=== PATIENT | male | born 1940 | race Caucasian/White ===

== ENCOUNTER 2017-09-13 04:44 | Emergency (ER) | payer MEDICARE, OTHER, SELFPAY ==
[2017-09-13 05:01] VITALS: BP 171/94; PULSE 80; RESP 18; TEMP 37.1; O2SAT 97; BMI 28.5
--- NOTE | 2017-09-13 05:24 | ED.BACK ---
HPI - Back Pain/Injury General Chief Complaint: Back Pain/Injury Stated Complaint: BACK PAIN WOKE HIM UP Time Seen by Provider: 09/13/17 05:22 Source: patient and family Mode of arrival: ambulatory Limitations: no limitations History of Present Illness HPI Narrative: 77-year-old male with history of hyperlipidemia and kidney stones presents to the emergency department with sudden onset deep right lower back pain with radiation to his front. He states on some levels that reminds him of a kidney stone in the past. He denies any provocation or palliation of this pain. He denies any dysuria, frequency, urgency or hematuria. He does have a history of musculoskeletal back pain and states this feels different. He denies any chest pain or shortness of breath. He denies any dizziness, weakness or lightheadedness. Does have a bit of nausea associated. He denies any history of hypertension or known aneurysm Related Data Home Medications Medication Instructions Recorded Confirmed ASPIRIN (#ASPIRIN) 81 mg PO Q DAY #0 09/18/10 niacin 500 mg PO 4 DAILY OTC #0 09/18/10 simvastatin 20 mg PO Q DAY #0 09/18/10 Previous Rx's Medication Instructions Recorded hydrocodone-acetaminophen 1 tab PO Q4-6H PRN #14 tab 09/13/17 ketorolac 10 mg PO Q6H PRN #14 tab 09/13/17 ondansetron [Zofran ODT] 4 mg PO Q6H PRN #14 tab 09/13/17 tamsulosin [Flomax] 0.4 mg PO DAILY #10 cap 09/13/17 Allergies Allergy/AdvReac Type Severity Reaction Status Date / Time INGREDIENT: NKA - NO KNOWN Allergy Unknown Uncoded 06/03/17 11:50 ALLERGIES Review of Systems Review of Systems All systems reviewed & are unremarkable except as noted in HPI and below Constitutional Denies chills, Denies fever(s), Denies lethargy and Denies weakness Eyes Denies change in vision, Denies eye discharge, Denies irritation and Denies loss of vision ENT Ears, Nose, Mouth, and Throat: Denies change in voice, Denies neck pain and Denies sore throat Cardiovascular Denies chest pain, Denies irregular heart rhythm, Denies lightheadedness, Denies palpitations, Denies dyspnea, Denies dyspnea on exertion and Denies orthopnea Respiratory Denies cough, Denies dyspnea, Denies dyspnea on exertion and Denies wheezing Gastrointestinal Gastrointestinal: Denies abdominal pain, Denies change in bowel habits, Denies diarrhea, Reports nausea and Denies vomiting Genitourinary Denies hematuria, Denies flank pain, Denies urinary incontinence and Denies urinary urgency Musculoskeletal Reports back pain and Denies neck pain Integumentary/Breasts Denies pruritus, Denies erythema, Denies rash and Denies wounds Neurologic Denies confusion, Denies loss of vision and Denies weakness Psychiatric Denies anxiety, Denies confusion, Denies depression, Denies homicidal ideation and Denies suicidal ideation Endocrine Denies palpitations Hematologic/Lymphatic Denies easy bruising Allergic/Immunologic Denies wheezing Exam Narrative Exam Narrative: 77-year-old mildly uncomfortable patient resting on cot Initial Vital Signs Initial Vital Signs: Vital Signs Temperature 98.7 F 09/13/17 05:01 Pulse Rate 80 09/13/17 05:01 Respiratory Rate 18 09/13/17 05:01 Blood Pressure 171/94 H 09/13/17 05:01 Pulse Oximetry 97 09/13/17 05:01 Const General: cooperative, well developed and in distress Nutritional Appearance: well nourished Orientation: alert, awake, oriented x3 and not confused HENAK Head: normocephalic and atraumatic Ears: external ears normal and TM's normal bilaterally Nose: external nose normal and No nasal discharge Face and sinus: sinuses nontender, face symmetric, no sinus tenderness and No dry mucous membranes Mouth: oral mucosae normal and moist mucous membranes Teeth and gingiva: dentition normal Throat: tonsils normal and uvula midline Resp Effort & Inspection: normal respiratory effort, able to speak in complete sentences, no respiratory distress and no use of accessory muscles Auscultation: clear to auscultation bilaterally, no rales, no rhonchi and no wheezes GI Inspection: non-distended Palpation: soft, no hepatosplenomegaly, No guarding, No pulsatile mass and tender (Mild right-sided abdominal pain) Auscultation: normal bowel sounds Back/Spine/Pelvis Back: No back tenderness Other: BACK: cut off saw tender metal but free of any obvious external abnormalities. no CVA tenderness, or vertebral point tenderness. There are no symptoms of cauda equina such as saddle anesthesia, and decreased reflexes, decreased sensation or strength. Skin General: no rashes or lesions noted, No jaundice and No petechiae Neuro General: alert, oriented x3, gait normal and no focal motor deficits Speech: speech normal Extrem General: full ROM, no clubbing, cyanosis or edema, no pedal edema and no calf tenderness Course Orders Ordered: ED Orders 09/13/17 05:34 Basic Metabolic Panel Stat Complete Blood Count AUTO DIFF Stat Type and Screen Stat 09/13/17 06:16 Urinalysis and Microscopic Stat 09/13/17 06:35 CT kidney ureter bladder (KUB) Stat Sodium Chloride (Normal Saline 0.9%) 1,000 mls @ 150 mls/hr IV CONT ANU Last Infusion: 09/13/17 06:41 Dose: 0 mls/hr Admin: 09/13/17 05:48 Dose: 150 mls/hr Discontinued Medications Hydrocodone Bitart/Acetaminophen (Vicodin Prepack) 1 bottle MISC SEEINSTR ONE Stop: 09/13/17 07:35 Ketorolac Tromethamine (Toradol) 30 mg IV NOW ONE Stop: 09/13/17 05:23 Last Admin: 09/13/17 05:48 Dose: 30 mg Ondansetron HCl (Zofran) 4 mg IV NOW ONE Stop: 09/13/17 05:26 Last Admin: 09/13/17 05:49 Dose: 4 mg Reevaluation(s) Reevaluation #1: near complete resolution of symptoms after toradol Vital Signs - 8 hr 09/13/17 05:01 Temperature 98.7 F Pulse Rate 80 Respiratory Rate 18 Blood Pressure 171/94 H Pulse Oximetry 97 MDM - Back Pain/Injury Lab Data Attestation: I reviewed the patient's lab results. Result diagrams: 09/13/17 05:34 09/13/17 05:34 Lab Results 09/13/17 09/13/17 09/13/17 Range/Units 05:34 05:34 05:34 WBC 6.5 (4.5-11.0) X10^3/uL RBC 4.73 (4.5-5.9) X10^6/uL Hgb 14.9 (13.5-17.5) g/dL Hct 44.0 (41-53) % MCV 93.1 (80-100) fL MCH 31.4 (26-34) PG MCHC 33.8 (30-36) % RDW 14.9 H (11.6-14.8) % Plt Count 232 (150-400) X10^3/uL Neut % (Auto) 66.6 (50-75) % Lymph % (Auto) 26.2 (25-40) % [place] % (Auto) 5.4 (3-14) % Eos % (Auto) 1.3 L (2-4) % Baso % (Auto) 0.5 (0-2) % Neut # (Auto) 4300 (9028-7395) /uL Sodium 142 (137-145) mmol/L Potassium 4.4 (3.4-5.1) mmol/L Chloride 105 (98-107) mmol/L Carbon Dioxide 25 (22-32) mmol/L BUN 33 H (9-20) mg/dL Creatinine 0.90 (0.66-1.25) mg/dL Estimated GFR > 60.0 (>60) mL/min BUN/Creatinine Ratio 36.7 H (6-22) Glucose 128 H (80-110) mg/dL Calcium 9.1 (8.4-10.2) mg/dL Urine Color Urine Appearance Urine pH (4.5-8.0) Ur Specific [place] (1.000-1.035) Urine Protein (Negative) Urine Glucose (UA) (Normal) g/dL Urine Ketones (NEGATIVE) Urine Occult Blood (Negative) Urine Nitrate (Negative) Urine Bilirubin (NEGATIVE) Urine Urobilinogen (0.2) E.U./dL Ur Leukocyte Esterase (NEGATIVE) Urine RBC (0-5/HPF) Urine WBC (0-5/HPF) Ur Squamous Epith Cells Ur Renal Epithelial Cell Urine Bacteria (None) Ur Culture Indicated? Blood Type A Positive Antibody Screen Negative 09/13/17 Range/Units 06:16 WBC (4.5-11.0) X10^3/uL RBC (4.5-5.9) X10^6/uL Hgb (13.5-17.5) g/dL Hct (41-53) % MCV (80-100) fL MCH (26-34) PG MCHC (30-36) % RDW (11.6-14.8) % Plt Count (150-400) X10^3/uL Neut % (Auto) (50-75) % Lymph % (Auto) (25-40) % [place] % (Auto) (3-14) % Eos % (Auto) (2-4) % Baso % (Auto) (0-2) % Neut # (Auto) (9407-5085) /uL Sodium (137-145) mmol/L Potassium (3.4-5.1) mmol/L Chloride (98-107) mmol/L Carbon Dioxide (22-32) mmol/L BUN (9-20) mg/dL Creatinine (0.66-1.25) mg/dL Estimated GFR (>60) mL/min BUN/Creatinine Ratio (6-22) Glucose (80-110) mg/dL Calcium (8.4-10.2) mg/dL Urine Color Yellow Urine Appearance Slightly cloudy Urine pH 5.0 (4.5-8.0) Ur Specific [place] 1.025 (1.000-1.035) Urine Protein Negative (Negative) Urine Glucose (UA) Negative (Normal) g/dL Urine Ketones Trace H (NEGATIVE) Urine Occult Blood 3+ H (Negative) Urine Nitrate Negative (Negative) Urine Bilirubin Negative (NEGATIVE) Urine Urobilinogen 0.2 (0.2) E.U./dL Ur Leukocyte Esterase Negative (NEGATIVE) Urine RBC 30-100/hpf H (0-5/HPF) Urine WBC 0-1/hpf (0-5/HPF) Ur Squamous Epith Cells 1-5 /hpf Ur Renal Epithelial Cell 0-1/hpf Urine Bacteria None seen (None) Ur Culture Indicated? Cult not indicated Blood Type Antibody Screen Imaging Data CT KUB: Attestation: I personally reviewed and interpreted this imaging study as follows: Radiologist's impression: 3mm stone R prox ureter with mild hydro Discharge Plan Departure Patient Disposition: Home, Self-Care Clinical Impression: Kidney calculi Instructions: DI for Kidney Stones Activity Restrictions/Additional Instructions: *You have been diagnosed with [ kidney stone] *What to do: *Take medications as directed *Follow up with your primary care provider in 2-3 days, call for an appointment. Let them know you were seen in the Emergency Department and that we ask that you be seen in follow up *Return to ER if you should have any new, worsening or concerning symptoms, such as [ fever over 101 F, shaking chills, persistent nausea and vomiting, worsening pain, or other bothersome symptoms] Prescriptions: New hydrocodone-acetaminophen 5-325 mg tablet 1 tab PO Q4-6H PRN (Reason: pain) Qty: 14 RF: 0 ketorolac 10 mg tablet 10 mg PO Q6H PRN (Reason: pain) Qty: 14 RF: 0 ondansetron [Zofran ODT] 4 mg tablet,disintegrating 4 mg PO Q6H PRN (Reason: nausea and vomiting) Qty: 14 RF: 0 tamsulosin [Flomax] 0.4 mg capsule,extended release 24hr 0.4 mg PO DAILY Qty: 10 RF: 0 No Action ASPIRIN (#ASPIRIN) 81 mg PO Q DAY Qty: 0 RF: 0 simvastatin 20 MG tablet 20 mg PO Q DAY Qty: 0 RF: 0 niacin 500 MG capsule, extended release 500 mg PO 4 DAILY OTC Qty: 0 RF: 0 Referrals: Tanesha Smith MD [Physician] - Byron Pedro MD [Primary Care Provider] -
[2017-09-13] MEDS: KETOROLAC 30 MG/ML VIAL IV (05:48)
[2017-09-13] MEDS: SODIUM CHLORIDE 0.9% 1,000 ML 150 ML IV (05:48)
[2017-09-13 05:49] LABS: Add Manual Diff / Slide Review NO; Basophils Percent Auto 0.5 % (0-2); Eosinophils Percent Auto 1.3 % (2-4); Hemoglobin 14.9 g/dL (13.5-17.5); Lymphocytes Percent Auto 26.2 % (25-40); Mean Corpuscular HGB Conc 33.8 % (30-36); Mean Corpuscular Hemoglobin 31.4 PG (26-34); Mean Corpuscular Volume 93.1 fL (80-100); Monocytes Percent Auto 5.4 % (3-14); Neutrophils Absolute Auto 4300 /uL (3000-5900); Neutrophils Percent Auto 66.6 % (50-75); Platelet Count 232 X10^3/uL (150-400); Red Blood Cell Count 4.73 X10^6/uL (4.5-5.9); Red Cell Distribution Width 14.9 % (11.6-14.8); White Blood Cell Count 6.5 X10^3/uL (4.5-11.0)
[2017-09-13] MEDS: ONDANSETRON 4 MG/2 ML INJ IV (05:49)
[2017-09-13 05:54] LABS: BUN Creatinine Ratio 36.7 (6-22); Blood Urea Nitrogen 33 mg/dL (9-20); Calcium 9.1 mg/dL (8.4-10.2); Carbon Dioxide 25 mmol/L (22-32); Chloride 105 mmol/L (98-107); Estimated Glomerular Filt Rate > 60.0 mL/min (>60); Glucose 128 mg/dL (80-110); HEMOLYSIS 36 (0-50); Potassium 4.4 mmol/L (3.4-5.1); Sodium 142 mmol/L (137-145)
[2017-09-13 06:02] LABS: Bacteria Urine None Seen
[2017-09-13 06:17] LABS: Appearance Urine UA Slightly Cloudy; Bilirubin Urine UA NEGATIVE (NEGATIVE); Color Urine UA YELLOW; Glucose Urine UA NEGATIVE (Normal); Ketones Urine UA TRACE (NEGATIVE); Leukocyte Esterase Urine UA NEGATIVE (NEGATIVE); Nitrite Urine UA Negative (Negative); Occult Blood Urine UA 3+ (Negative); Protein Urine UA NEGATIVE (Negative); Specific Gravity Urine UA 1.025 (1.000-1.035); Urobilinogen Urine UA 0.2 E.U./dL (0.2)
[2017-09-13 06:19] LABS: RBC Urine 30-100/HPF (0-5/HPF); Squamous Epithelial Cell Urine 1-5 /HPF; WBC Urine 0-1/HPF (0-5/HPF)
[2017-09-13 06:20] LABS: Culture Indicated Urine Cult Not Indicated; Renal Epithelial Cells Urine 0-1/HPF
--- NOTE | 2017-09-13 06:35 | DI.CT.S_ITS ---
PROCEDURE: CT KIDNEY URETER BLADDER (KUB) INDICATIONS: flank pain hematuria TECHNIQUE: Noncontrast 5 mm thick sections acquired from the diaphragms to the symphysis. 5 mm thick coronal and sagittal reformats were then performed. For radiation dose reduction, the following was used: automated exposure control, adjustment of mA and/or kV according to patient size. COMPARISON: None. FINDINGS: Image quality: Excellent. Lung bases: Lung bases are clear. Heart size is normal. Urinary system: There is a 3 mm calcification in the proximal right ureter with mild to moderate proximal hydroureter and hydronephrosis. There is right perinephric stranding. Punctate calcification is noted within the inferior right renal pole. The left kidney is unremarkable. Bladder wall thickness is normal; no calcified bladder stones. Other solid organs: Liver is mildly prominent. Gallbladder is unremarkable. Pancreas is normal in contours. Spleen is normal in size. No adrenal nodules. Peritoneum and bowel: Unenhanced bowel loops demonstrate normal wall thickness and caliber. No free fluid or air. Scattered diverticula are present. Nodes and vessels: No retroperitoneal or mesenteric adenopathy by size criteria. Aorta and inferior vena cava are normal in caliber. Atherosclerotic changes are noted throughout the aorta. Abdominal wall: No ventral hernias. Pelvis: No free pelvic fluid. No inguinal hernias or adenopathy. Bones: No suspicious bony lesions. No vertebral body compression fractures. IMPRESSION: 1. Mild to moderate right hydronephrosis and proximal hydroureter secondary to proximal right obstructing ureteral calculus. Dictated by: Lo Miller M.D. on 09/13/2017 at 9:32 Approved by: Lo Miller M.D. on 09/13/2017 at 9:37
[2017-09-13 07:49] VITALS: BP 139/80; PULSE 78; RESP 20; O2SAT 96
== END 2017-09-13 07:49 | disposition home or self-care (01) ==
PROVIDERS: Emergency Provider Emergency Medicine; Family Provider Internal Medicine Cardiovascular Disease; PCP Family Medicine
DX: N20.0 Calculus of kidney (principal)
CPT/HCPCS: 36591; 74176; 80048; 81001; 85025; 86850; 86900; 86901; 96361; 96374; 96375; 99283; 99284; J1885; J2405

== ENCOUNTER 2017-11-04 10:22 | Day surgery (SDC) | payer MEDICARE, OTHER, SELFPAY ==
--- NOTE | 2017-11-04 07:44 | PM.PREOP ---
Pre-operative Note Interval Note Pre-op Check: Yes History & Physical Reviewed by Physician Changes: No
[2017-11-04] MEDS: PROPARACAINE 0.5% OPHTH SOL 2 DROPS EYE-OP (11:40)
[2017-11-04] MEDS: CATARACT EYE COMPOUND (10 DROPS/SYRINGE) 3 DROPS EYE-OP (11:40)
[2017-11-04 11:54] VITALS: BP 124/78; PULSE 74; RESP 15; TEMP 36.4; O2SAT 97; BMI 28.8
[2017-11-04] MEDS: LIDOCAINE 1% W/EPI INJ 20 ML INJ (13:19)
[2017-11-04] MEDS: BALANCED SALT IRRIG SOLN NO.2 15 ML IRRIG.SOLN IRR (13:19)
[2017-11-04] MEDS: CHONDROIDTIN/SOD HYALURONATE 1.05 ML SYRINGE INTRAOCULA (13:19)
[2017-11-04] MEDS: MOXIFLOXACIN OPHTH DROPS 3 ML BOTTLE 2 DROPS INJ (13:19)
[2017-11-04] MEDS: PHENYLEPHRINE/LIDOCAINE VIAL (OR) 0.2 ML EYE-OP (13:20)
[2017-11-04] MEDS: OFLOXACIN 0.3% OPHTH 5 ML 2 DROPS EYE-RIGHT (13:20)
[2017-11-04] MEDS: TRIAMCINOLONE 50 MG/5 ML VIAL INJ (13:20)
[2017-11-04] MEDS: NEOMYCIN/POLY/DEX OPHTH OINT 1 APPLIC EYE-RIGHT (13:20)
[2017-11-04] MEDS: TRYPAN BLUE 0.5 ML SYRINGE INJ (13:21)
[2017-11-04] MEDS: LIDOCAINE 2% 4 ML, BUPIVACAINE 0.5% (PF) 4 ML, HYALURONIDASE 150 UNIT INJ (13:21)
[2017-11-04] MEDS: BALANCED SALT IRRIG SOLN NO.2 500 ML, EPINEPHrine 1 MG IRR (13:21)
[2017-11-04 13:55] VITALS: BP 126/74; PULSE 70; RESP 12; TEMP 36.4; O2SAT 96
--- NOTE | 2017-11-04 16:22 | PM.OP.1 ---
Operative Date/Time/Diagnoses Date of procedure: 11/04/17 Time of procedure: 13:30 Procedure & Clinicians Procedure: Date of service:11/04/2017 Preoperative diagnoses: 1. Right complex Cataract with toric IOL. 2. Enlarged prostate. 3. Astigmatism which he elects to treat with a toric IOL. Postoperative diagnoses: 1. Cataract removed with phacoemulsification with use of capsular dye. Toric IOL. Complex. Procedure: Phacoemulsification with toric posterior chamber intraocular lens implant Surgeon: Vivian Thomas MD Complications:None Specimen: None Implant:[id number] . [place]rie 011 degrees. Blood loss: None Anesthesia: Retrobulbar with monitored standby Anesthesiologist: Cisco Mendez M.D. Description of procedure: Patient is a male year old with decreased vision due to cataract which is affecting activities of daily living. He wants surgery to improve vision. There is a very poor red reflex due to diffuse cortical cataract and bordreline pupil with protate disease and previous short term tamsulosin use. He has taken to the operating room and topical proparacaine drops were placed. Indelible ink markings were made at the 90 and 180 degree position.He was then given IV sedation. A retrobulbar block insert consisting of 6 cc of 2% xylocaine without epinephrine mixed half and half with 0.5% Marcaine with 1 cc of hyaluronidase added is placed between the medial and lateral 1/3 of the inferior orbital rim. Lid akinesia is obtain with 1% xylocaine with epinephrine infiltrated along the lid margin. The eye is manually massaged for 30 sec, prepped using Betadine solution, and draped in the usual sterile fashion. Temporal approach was made, a 1 mm side-port incision was made at the 7:30 position. Phenylephrine 1.5% mixed with 1% xylocaine 0.2 cc was placed into the anterior chamber. An air bubble placed and then followed by Visudyne dye.Viscoat followed by Healon was then placed. A 2.6 mm clear incision with a 2.6 mm blade was placed at the 170 degree meridian. A 360 degree capsulorrhexis style capsulotomy was then performed with a cystitome needle on a Healon. Hydrodelineation and hydrodissection were performed. The phacoemulsification unit is introduced, and sculpting notice used to groove the central lens. It is then removed in chopping mode. Epi nucleus is removed with epinuclear mode and irrigation aspiration was used to remove the peripheral cortex. The posterior capsule is polished. The intraocular lens is selected, inspected, power confirmed, and placed in the posterior chamber at the 11 degree position. The pupil was not constricted. The wound was stromally hydrated and tested for leaks, there was none and was left sutureless. Vigamox 0.1 cc was placed into the anterior chamber. Kenalog 0.2 cc was placed in the superior subconjunctival space. A drop of antibiotic and was placed and the eye was patched and shielded. The patient was stable and returned to the recovery room in excellent condition. Dictated by: Vivian Thomas MD Copy to: [facility] Same procedure as scheduled: Yes
== END 2017-11-04 14:05 | disposition home or self-care (01) ==
PROVIDERS: PCP Family Medicine; Visit Provider Ophthalmology
DX: H25.11 Age-related nuclear cataract, right eye (principal); H52.201 Unspecified astigmatism, right eye
CPT/HCPCS: J0171; J2704; J3301; J3470; V2787

== ENCOUNTER 2017-11-11 08:22 | Day surgery (SDC) | payer MEDICARE, OTHER, SELFPAY ==
--- NOTE | 2017-11-11 08:05 | PM.PREOP ---
Pre-operative Note Interval Note Pre-op Check: Yes History & Physical Reviewed by Physician Changes: No
--- NOTE | 2017-11-11 08:07 | PM.OP.1 ---
Operative Date/Time/Diagnoses Date of procedure: 11/11/17 Time of procedure: 10:00 Procedure & Clinicians Procedure: Date of service: November 12, 2007 Preoperative diagnoses:1. Nuclear sclerotic and cortical cataract. 2. Previous pterygium removal with temporal scar.3. Previous prostate medication use use. 4. Astigmatism which he lelects to correct with a toric intraocular lens. Cataract Postoperative diagnoses:1. Cataract [removed with toric intra-ocular lens implant posterior chamber.Procedure: Phacoemulsification with posterior chamber toric intraocular lens implantSurgeon: Vivian Thomas MD. Complications: None Specimen: None Implant: NoneBlood loss: NoneAnesthesia: Retrobulbar with monitored standby. Anesthesiologist: Cisco Franks M.D.Description of procedure: Patient is a 77 year old male with decreased vision due to cataract which is affecting activities of daily living. He wants surgery to improve vision.He has taken to the operating room and given topical proparacaine drops and indelible ink diaz were made at the 90 and 180 degree meridian. He was placed on the operating room table and given IV sedation. A retrobulbar block insert consisting of 6 cc of 2% xylocaine without epinephrine mixed half and half with 0.5% Marcaine with 1 cc of hyaluronidase added is placed between the medial and lateral 1/3 of the inferior orbital rim. Lid akinesia is obtain with 1% xylocaine with epinephrine infiltrated along the lid margin. The eye is manually massaged for 30 sec, prepped using Betadine solution, and draped in the usual sterile fashion.Temporal approach was made, a 1 mm side-port incision was made at the 12 oclock meridian. Phenylephrine 1.5% mixed with 1% xylocaine 0.2 cc was placed into the anterior chamber. Viscoat followed by Kiet was then placed. A 2.6 mm clear incision with a 2.6 mm blade was placed at the 3 oclock meridian. A 360 degree capsulorrhexis style capsulotomy was then performed with a cystitome needle on a Healon. Hydrodelineation and hydrodissection were performed. The phacoemulsification unit is introduced, and sculpting notice used to groove the central lens. It is then removed in chopping mode. Epi nucleus is removed with epinuclear mode and irrigation aspiration was used to remove the peripheral cortex. The posterior capsule is polished. The intraocular lens is selected, inspected, power confirmed, and placed in the posterior chamber at the 175 degree meridian. The pupil was not constricted. The wound was stromally hydrated and tested for leaks, there was none and was left sutureless. Vigamox 0.1 cc was placed into the anterior chamber. Kenalog 0.2 cc was placed in the superior subconjunctival space. A drop of antibiotic and was placed and the eye was patched and shielded. The patient was stable and returned to the recovery room in excellent condition.Dictated by: AMBROSE Amayaopy to: [facility]
[2017-11-11 08:57] VITALS: BMI 28.6
[2017-11-11] MEDS: PROPARACAINE 0.5% OPHTH SOL 2 DROPS EYE-OP (09:04)
[2017-11-11 09:06] VITALS: BP 130/69; PULSE 78; RESP 16; TEMP 36.1; O2SAT 98
[2017-11-11] MEDS: CATARACT EYE COMPOUND (10 DROPS/SYRINGE) 3 DROPS EYE-OP (09:08)
[2017-11-11] MEDS: CHONDROIDTIN/SOD HYALURONATE 1.05 ML SYRINGE INTRAOCULA (10:24)
[2017-11-11] MEDS: HYALURONATE SODIUM 10 MG/ML SYRINGE INJ (10:24)
[2017-11-11] MEDS: MOXIFLOXACIN OPHTH DROPS 3 ML BOTTLE 2 DROPS INJ (10:24)
[2017-11-11] MEDS: NEOMYCIN/POLY/DEX OPHTH OINT 1 APPLIC EYE-LEFT (10:24)
[2017-11-11] MEDS: BALANCED SALT IRRIG SOLN NO.2 15 ML IRRIG.SOLN IRR (10:24)
[2017-11-11] MEDS: OFLOXACIN 0.3% OPHTH 5 ML 2 DROPS EYE-LEFT (10:25)
[2017-11-11] MEDS: TRIAMCINOLONE 50 MG/5 ML VIAL INJ (10:25)
[2017-11-11] MEDS: PHENYLEPHRINE/LIDOCAINE VIAL (OR) 0.2 ML EYE-OP (10:25)
[2017-11-11] MEDS: LIDOCAINE 2% 4 ML, BUPIVACAINE 0.5% (PF) 4 ML, HYALURONIDASE 150 UNIT INJ (10:26)
[2017-11-11] MEDS: BALANCED SALT IRRIG SOLN NO.2 500 ML, EPINEPHrine 1 MG IRR (10:26)
[2017-11-11 14:06] VITALS: BP 135/85; PULSE 77; RESP 12; TEMP 35.9; O2SAT 100
--- NOTE | 2017-11-11 14:09 | SUR.PHASEII ---
pt is ready to go, but his is having her cataract done, pt stayed in phase 2 to wait for her. pt ready to leave at 1100. when was completed, pt left in stable condition.
== END 2017-11-11 11:00 | disposition home or self-care (01) ==
LOC: OR 08:23
PROVIDERS: PCP Family Medicine; Visit Provider Ophthalmology
DX: H25.12 Age-related nuclear cataract, left eye (principal); H25.012 Cortical age-related cataract, left eye; H52.202 Unspecified astigmatism, left eye; N40.0 Benign prostatic hyperplasia without lower urinary tract symptoms; H91.90 Unspecified hearing loss, unspecified ear
CPT/HCPCS: J0171; J2704; J3301; J3470; V2787

== ENCOUNTER → 2019-01-18 10:13 | Outpatient (CLI) | payer MEDICARE, OTHER, SELFPAY ==
[2019-01-18 11:02] LABS: Add Manual Diff / Slide Review NO; Basophils Absolute Auto 0 /uL (0-100); Basophils Percent Auto 0.8 % (0-2); Eosinophils Absolute Auto 100 /uL (0-450); Eosinophils Percent Auto 1.4 % (2-4); Hematocrit 41.6 % (41-53); Hemoglobin 14.2 g/dL (13.5-17.5); Lymphocytes Absolute Auto 1700 /uL (1100-4500); Lymphocytes Percent Auto 33.5 % (25-40); Mean Corpuscular HGB Conc 34.3 % (30-36); Mean Corpuscular Hemoglobin 31.6 PG (26-34); Mean Corpuscular Volume 92.2 fL (80-100); Monocytes Absolute Auto 400 /uL (0-900); Monocytes Percent Auto 6.8 % (3-14); Neutrophils Absolute Auto 3000 /uL (1500-7000); Neutrophils Percent Auto 57.5 % (50-75); Platelet Count 209 X10^3/uL (150-400); Red Blood Cell Count 4.51 X10^6/uL (4.5-5.9); Red Cell Distribution Width 14.3 % (11.6-14.8); White Blood Cell Count 5.2 X10^3/uL (4.5-11.0)
[2019-01-18 11:15] LABS: Alanine Aminotransferase 36 IU/L (<50); Albumin 4.3 g/dL (3.5-5.0); Albumin Globulin Ratio 1.6 (1.0-2.8); Alkaline Phosphatase 62 U/L (38-126); Aspartate Aminotransferase 34 IU/L (17-59); BUN Creatinine Ratio 17.3 (6-22); Bilirubin Total 0.6 mg/dL (0.2-1.3); Blood Urea Nitrogen 19 mg/dL (9-20); Calcium 9.3 mg/dL (8.4-10.2); Carbon Dioxide 27 mmol/L (22-32); Chloride 105 mmol/L (98-107); Estimated Glomerular Filt Rate > 60.0 mL/min (>60); Globulin 2.7 g/dL (1.7-4.1); Glucose 95 mg/dL (80-110); HEMOLYSIS < 15 (0-50); Potassium 4.6 mmol/L (3.4-5.1); Sodium 141 mmol/L (137-145)
[2019-01-18 11:42] LABS: Prostate Specific Antigen Scrn 0.151 ng/mL (0.1-4.0)
[2019-01-18 11:44] LABS: Thyroid Stimulating Hormone 1.99 uIU/mL (0.47-4.68)
== END ==
PROVIDERS: PCP Family Medicine; Visit Provider Family Medicine
DX: I25.10 Atherosclerotic heart disease of native coronary artery without angina pectoris (principal); Z12.5 Encounter for screening for malignant neoplasm of prostate; E78.5 Hyperlipidemia, unspecified
CPT/HCPCS: 36415; 80053; 84443; 85025; G0103

== ENCOUNTER 2019-01-25 12:26 | Day surgery (SDC) | payer MEDICARE, OTHER, SELFPAY ==
--- NOTE | 2019-01-25 | PATH_ITS ---
[facility] Accession Number: [id number] . 01 Material submitted: . PART A: colon - POLYP AT 90CM (TRANSVERSE COLON) PART B: colon - POLYP AT 50CM . 01 Clinical history: . SCREENING COLONOSCOPY . 02 Diagnosis: A. Transverse Colon At 90 CM, Polyp: Tubular adenoma. . B. Colon At 50 CM, Polyp: Tubular adenoma. [facility] 01/26/2019 1001 Local . 02 Electronically signed: . Irineo Lyles MD, PhD, Pathologist NPI- [id number] . 01 Gross description: . Part A: POLYP AT 90CM (TRANSVERSE COLON): Received in formalin is 1 fragment(s) of new, soft tissue measuring 0.1 x 0.1 x 0.1 cm submitted entirely in 1 cassette(s) Part B: POLYP AT 50CM: Received in formalin are 2 fragment(s) of new, soft tissue measuring 0.2 x 0.2 x 0.1 cm to 0.3 x 0.2 x 0.2 cm submitted entirely in 1 cassette(s) /[facility] 01/25/2019 2236 Local . 02 Pathologist provided ICD-10: D12.3, D12.6 . 02 CPT . 508328, [id number] Performed at: 01 [facility] [address], [place], [place] [id number] MD Ricki Bower MD Phone: [phone] Performed at: 02 [facility] [address] [place], [place] [id number] MD Maria Elena Gonzalez MD Phone: [phone]
[2019-01-25] MEDS: SODIUM CHLORIDE 0.9% 1,000 ML 200 ML IV (12:59)
[2019-01-25 13:07] VITALS: BP 114/73; PULSE 93; RESP 17; TEMP 36.9; O2SAT 94; BMI 29.7
--- NOTE | 2019-01-25 13:49 | PM.HP.1 ---
History of Present Illness History of Present Illness Date Patient Seen: 01/25/19 Time Patient Seen: 13:49 Chief complaint: [id number] SCREENING COLONOSCOPY Narrative: This is a 78-year-old man who is here for follow-up screening colonoscopy. He had a colonoscopy about 10 years ago, which he says was normal. He denies any personal history of rectal bleeding, melena, unexplained weight loss, or abdominal pain. He says he is otherwise quite healthy, and has no health concerns or complaints. ROS: Thirteen system review is negative other than as mentioned below and in HPI. PE: GENERAL: Well groomed and cooperative. Appears stated age. Answers questions promptly and appropriately. Vital signs noted. HENT: Normocephalic, atraumatic. Hearing intact. Oral mucosa is pink and moist. EYES: Conjunctiva pink, sclera white, no periorbital swelling. CARDIOVASCULAR: Regular rate. No pedal edema. RESPIRATORY: Non tachypneic, breathing comfortably on room air. GASTROINTESTINAL: Abdomen soft and non-distended GENITALURINARY: No flank tenderness. MUSCULOSKELETAL: Equal tone and mass bilaterally. SKIN: Warm, dry, soft, appropriate color for ethnicity. No other lesions, rashes, or wounds. NEURO: Alert and Oriented X 3. No gross sensory deficits, or cognitive issues. PSYCH: Appropriate affect and mood. Patient History Medical History Cataracts, bilateral (Chronic ~2017) Coronary artery disease (Chronic ~2000) Fever (Resolved ~2006) Hand problems (Chronic ~2012) Hearing loss (Chronic ~1970) Kidney stones (Chronic) Measles (Resolved ~1950) Mumps (Resolved ~1950) Vision disorder (Chronic) Surgical History Anesthesia (Resolved) Appendicitis (Resolved ~1988) Family & Social History Family History Father Heart disease Mother Diabetes mellitus Mental health problem Brother Heart disease Sister Cancer Social History: household members spouse Tobacco & Substance use: Smoking Status Former smoker alcohol intake frequency 0-2 drinks per day Substance Use Type does not use Meds Home Medications and Allergies Home Medications Medication Instructions Recorded Confirmed Type ASPIRIN (#ASPIRIN) 162 mg PO Q DAY #0 11/03/17 01/25/19 History flaxseed oil 1,000 mg capsule 1,000 mg PO DAILY 11/03/17 01/25/19 History omega-3 fatty acids 1,000 mg 1,000 mg PO DAILY 11/03/17 01/25/19 History capsule rosuvastatin 20 mg tablet 20 mg PO DAILY tab 10/27/18 01/25/19 History Allergies Allergy/AdvReac Type Severity Reaction Status Date / Time No Known Drug Allergies Allergy Verified 01/25/19 12:59 Exam Vital Signs (past 8 hours): - 01/25/19 13:07 Temperature 98.4 F Pulse Rate 93 H Respiratory Rate 17 Blood Pressure 114/73 Pulse Oximetry 94 Oxygen Delivery Method Room Air Assessment & Plan Assessment and plan (1) At average risk for colon cancer: Current visit: Yes Status: Acute (2) Colon cancer screening: Current visit: Yes Status: Acute Assessment & Plan narrative: Risks and benefits of colonoscopy and possible polypectomy were discussed with the patient including risk of bleeding, perforation, need for additional procedures. The patient desires to proceed with colonoscopy and polypectomy. Time Spent With Patient Time with patient: 15-24 minutes
--- NOTE | 2019-01-25 14:18 | PM.OP.ENDO ---
Operative Date/Time/Diagnoses Date of procedure: 01/25/19 Time of procedure: 14:18 Pre-op diagnosis: Average risk for colon cancer Post-op diagnosis: other (Colon polyps) Procedure & Clinicians Study performed: Colonoscopy, polypectomy with cold forceps x2 Same procedure as scheduled: Yes Indications: Average risk for colon cancer Surgeon: Marisol Patel Procedure Notes SCOAP/Timeout: Performed Procedure in detail: The patient was brought to the room and placed in left lateral decubitus position with all bony prominences padded. A time-out was performed and then the patient was given procedural sedation starting with 3 mg of Versed and [100] mcg of fentanyl. Vitals were monitored throughout the procedure and remained stable. Once adequately sedated the procedure was begun. A rectal exam was performed revealing [no abnormalities]. The colonoscope was then introduced to the rectum and advanced to the cecum in the usual fashion. []The cecum was identified by the appendiceal orifice, the mucosal try fold, and the ileocecal valve. The scope was then retracted while rotating side to side and examining each mucosal fold. [2 polyps were found and removed with cold forceps. One was at 90 cm which was 8 mm in size and 1 was at 50 cm which was 8 mm in size. ] At the conclusion procedure retroflexion was performed and [small grade 1-2 internal hemorrhoids without stigmata of bleeding were seen]. The scope was then withdrawn from the rectum the procedure was concluded. The patient tolerated the procedure well was transferred to the PACU in stable condition. Scope withdrawal time: 14 Sedation minutes: 23 Findings: polyp Specimen(s): other (8 mm flat polyp at 90 cm, 8 mm flat polyp at 50 cm both completely removed) Complications: none Impression: Two small polyps, likely non neoplastic Post-procedure Recommendations: Colonscopy in 10 years (Unless pathology results are concerning for neoplasm) Follow up: as needed Disposition: PACU
[2019-01-25] MEDS: MIDAZOLAM 5 MG/5 ML VIAL IV (14:20)
[2019-01-25] MEDS: fentaNYL 250 MCG/5 ML INJ IV (14:20)
--- NOTE | 2019-01-25 14:32 | SUR.PHASEII ---
Pt bypassed PACU, awake on arrival. brought in, discussed d/c instructions. all voiced an understanding.
[2019-01-25 14:39] VITALS: BP 114/75; PULSE 87; RESP 16; TEMP 36.7; O2SAT 97
[2019-01-25 15:47] VITALS: BP 118/77; PULSE 79; RESP 16; TEMP 36.3; O2SAT 94
--- NOTE | 2019-01-25 15:49 | SUR.PHASEII ---
Pt/ desire to discharge; approved by Bri Barrera RN. Denies pain, awake, oriented, skin warm and dry, resp unlabored, VSS
== END 2019-01-25 15:51 | disposition home or self-care (01) ==
PROVIDERS: Family Provider Family Medicine; PCP Family Medicine; Visit Provider Surgery
PROC: 0DJD8ZZ Inspection of Lower Intestinal Tract, Via Natural or Artificial Opening Endoscopic (ICD-10-PCS; CPT 45378; principal; 2019-01-25 13:45)
DX: Z12.11 Encounter for screening for malignant neoplasm of colon (principal); K64.0 First degree hemorrhoids; D12.3 Benign neoplasm of transverse colon; D12.6 Benign neoplasm of colon, unspecified
CPT/HCPCS: 45380; 99152; J2250; J3010

== ENCOUNTER → 2019-06-22 10:37 | Outpatient (CLI) | payer MEDICARE, OTHER, SELFPAY ==
--- NOTE | 2019-06-22 10:40 | DI.RAD.S_ITS ---
PROCEDURE: XR FOOT RT MIN 3V INDICATIONS: pain TECHNIQUE: 3 views of the foot were acquired. COMPARISON: None. FINDINGS: Bones: No fractures or dislocations. There is a lesions are seen involving the 5th metatarsal head, with additional potential erosions involving the 1st and 3rd metatarsal heads. Degenerative changes are seen throughout, which are most prominent along the Lisfranc joint. Plantar and Achilles calcaneal spurs are seen. Incidental note is made of an accessory ossicle, an os peroneum. Toe alignment abnormalities are seen. Soft tissues: No tibiotalar joint effusion. Achilles tendon appears normal. IMPRESSION: Degenerative changes are seen, which are most prominent involving the Lisfranc joint. Apparent erosive change can be seen involving metatarsal heads, which is best demonstrated involving the 5th metatarsal head. Dictated by: Arya Vega M.D. on 06/22/2019 at 10:34 Approved by: Arya Vega M.D. on 06/22/2019 at 10:36
== END ==
PROVIDERS: Family Provider Family Medicine; PCP Family Medicine; Referring Provider Family Medicine; Visit Provider Family Medicine
DX: M79.671 Pain in right foot (principal); M89.9 Disorder of bone, unspecified
CPT/HCPCS: 73630

== ENCOUNTER → 2020-01-27 09:14 | Outpatient (CLI) | payer MEDICARE, OTHER, SELFPAY ==
[2020-01-27 10:35] LABS: Alanine Aminotransferase 43 IU/L (<50); Albumin 4.3 g/dL (3.5-5.0); Albumin Globulin Ratio 1.3 (1.0-2.8); Alkaline Phosphatase 71 U/L (38-126); Aspartate Aminotransferase 41 IU/L (17-59); BUN Creatinine Ratio 24.7 (6-22); Bilirubin Total 0.5 mg/dL (0.2-1.3); Blood Urea Nitrogen 21 mg/dL (9-20); Calcium 9.1 mg/dL (8.4-10.2); Carbon Dioxide 26 mmol/L (22-32); Chloride 107 mmol/L (98-107); Cholesterol 124 mg/dL (140-199); Estimated Glomerular Filt Rate > 60.0 mL/min (>60); Globulin 3.2 g/dL (1.7-4.1); Glucose 98 mg/dL (80-110); HDL Cholesterol 42 mg/dL (40-60); HEMOLYSIS < 15 (0-50); LDL Cholesterol Calculated 62 mg/dL (<100); Potassium 4.6 mmol/L (3.4-5.1); Sodium 139 mmol/L (137-145); Total Protein 7.5 g/dL (6.3-8.2); Triglycerides 99 mg/dL (35-150)
== END ==
PROVIDERS: Family Provider Family Medicine; PCP Family Medicine; Referring Provider Family Medicine; Visit Provider Family Medicine
DX: E78.5 Hyperlipidemia, unspecified (principal); I25.10 Atherosclerotic heart disease of native coronary artery without angina pectoris; M79.671 Pain in right foot
CPT/HCPCS: 36415; 80053; 80061

== ENCOUNTER → 2020-02-22 08:05 | Outpatient (CLI) | payer MEDICARE, OTHER, SELFPAY ==
--- NOTE | 2020-02-22 08:06 | DI.US.S_ITS ---
PROCEDURE: US ABD AORTA ANEURYSM SCREEN INDICATIONS: HISTORY SMOKING TECHNIQUE: Real time scanning was performed of the aorta and iliac arteries, with image documentation. COMPARISON: None. FINDINGS: Aorta: Proximal aorta is not visualized due to bowel gas. Mid-aorta measures 1.9 cm. Distal aortic diameter is 1.7 cm. Iliac arteries: Right common iliac artery measures 0.9 cm. Left common iliac artery measures 1.1 cm. IMPRESSION: Normal caliber aorta and iliac arteries where visualized. The proximal aorta was not visualized due to overlying bowel gas. Dictated by: Martina Galindo M.D. on 02/22/2020 at 15:01 Approved by: Martina Galindo M.D. on 02/22/2020 at 15:02
== END ==
PROVIDERS: Family Provider Family Medicine; PCP Family Medicine; Referring Provider Family Medicine; Visit Provider Family Medicine
DX: Z13.6 Encounter for screening for cardiovascular disorders (principal); Z00.00 Encounter for general adult medical examination without abnormal findings; Z87.891 Personal history of nicotine dependence
CPT/HCPCS: 76706

== ENCOUNTER → 2020-06-11 14:54 | Outpatient (CLI) | payer MEDICARE, OTHER, SELFPAY ==
--- NOTE | 2020-06-11 14:57 | DI.RAD.S_ITS ---
PROCEDURE: XR LUMBAR SPINE 2-3V INDICATIONS: low back pain and left foot numbness TECHNIQUE: 3 views of the lumbar spine were acquired. COMPARISON: [facility], , -SPINE 2-3 VIEWS, 09/29/2006, 9:51. FINDINGS: Bones: 5 [id number]-[id number] vertebrae are present. There is normal bony alignment. No vertebral body compression fractures. No suspicious bony lesions. Mild degenerative disc disease along the middle and lower thirds of the lumbosacral spine, moderate facet osteoarthritis from L2 inferiorly becoming progressively more prominent as the L4-5 and L5-S1 levels are reached. Significant spinal and foraminal stenosis likely is associated. Soft tissues: Overlying bowel gas pattern is normal. No suspicious soft tissue calcifications. IMPRESSION: No trauma found. The degenerative disc disease is relatively mild but the facet osteoarthritis becomes progressively more prominent over the middle and lower thirds of the lumbosacral spine. Significant spinal and foraminal stenosis suspected at L4-5 and L5-S1. Dictated by: Yosi Bowman M.D. on 06/11/2020 at 16:19 Approved by: Yois Bowman M.D. on 06/11/2020 at 16:20
== END ==
PROVIDERS: Family Provider Family Medicine; PCP Family Medicine; Referring Provider Family Medicine; Visit Provider Family Medicine
DX: M48.061 Spinal stenosis, lumbar region without neurogenic claudication (principal); M47.817 Spondylosis without myelopathy or radiculopathy, lumbosacral region; M47.816 Spondylosis without myelopathy or radiculopathy, lumbar region; M51.36 Other intervertebral disc degeneration, lumbar region; M54.5 Low back pain; R20.0 Anesthesia of skin
CPT/HCPCS: 72100

== ENCOUNTER → 2020-06-21 13:11 | Outpatient (CLI) | payer MEDICARE, OTHER, SELFPAY ==
--- NOTE | 2020-06-21 13:14 | DI.ECHO.S_ITS ---
[facility] +---------+ [facility] +---------+ : : [address] : : : : [id number] : : : : Phone: [phone] Echocardiogram Report + + :Name: GINNY MADDEN Study Date: 06/21/2020 Height: 67 in : :[facility] ReadingLocation: Weight: 204 lb : : Gender: Male BSA: 2.0 m2 : :: 1940 Age: 80 yrs BP: 154/91 mmHg: :Reason For Study: CAD : :Ordering Physician: SHANDA, : :JOSE Performed By: Marky Brown : :Referring: JOSE LAND : + + Interpretation Summary The ejection fraction is estimated to be 55-60%. There is no significant valvular heart disease. Procedure: A two-dimensional transthoracic echocardiogram with color flow and Doppler was performed. The study quality was technically adequate. There is no prior echocardiogram noted for this patient. The patient was in sinus rhythm with heart rates between 62-86 bpm during the exam. Left Ventricle: The left ventricle is normal in size and wall thickness. Left ventricular systolic function is normal. The ejection fraction is estimated to be 55-60%. There are no focal wall motion abnormalities. Diastolic function could not be accurately assessed due to unobtainable data. Right Ventricle: The right ventricle is normal in size and function. Atria: Both atria are normal in size. There is no Doppler evidence for an interatrial shunt. Mitral Valve: The mitral valve leaflets are mildly calcified. There is mild mitral annular calcification. There is trace mitral regurgitation. Aortic Valve: There is mild aortic valve sclerosis. No aortic regurgitation is present. Tricuspid Valve: The tricuspid valve is normal in structure and function. There is a trace or physiologic amount of tricuspid regurgitation. Pulmonary artery pressures cannot be estimated because of the lack of a measurable TR jet velocity but the IVC suggests a CVP of around 3 mmHg. Pulmonic Valve: The pulmonic valve is not well seen, but is grossly normal. There is a trace or physiologic amount of pulmonic regurgitation. Great Vessels: The aortic root is normal size. The dimensions of the ascending aorta are normal. The IVC is of normal diameter and collapses greater than 50% with a sniff. This suggests a low right atrial pressure of 3 mm Hg. Pericardium/ Pleura There is no pericardial effusion. There is no pleural effusion. MMode/2D Measurements & Calculations LVIDd: 4.5 cm LVOT diam: 2.1 cm LVIDs: 3.1 cm Ao root diam: 3.8 cm FS: 32.7 % asc Aorta Diam: 3.5 cm IVSd: 1.0 cm LVPWd: 0.92 cm LV hernandez. diameter/BSA (cm/m^2): 2.2 LV sys. diameter/BSA (cm/m^2): 1.5 LA A2 area: 17.1 cm2 RA area: 9.1 cm2 LA A4 area: 13.0 cm2 LA length (vol): 5.1 cm LA vol: 37.0 ml LA vol index: 18.1 ml/m2 RVD1 (basal): 2.4 cm TAPSE: 2.1 cm Doppler Measurements & Calculations Ao V2 max: 111.1 cm/sec LVOT Max Dameon: 99.6 cm/sec Ao V2 mean: 80.0 cm/sec LV V1 max P.0 mmHg Ao max P.9 mmHg LV V1 VTI: 21.7 cm Ao mean P.8 mmHg DINAH(I,D): 3.4 cm2 Ao V2 VTI: 22.5 cm DINAH(V,D): 3.2 cm2 sev ratio: 0.97 DINAH indexed to BSA (cm^2/m^2): 1.7 MV E max dameon: 109.0 cm/sec PA V2 max: 100.4 cm/sec MV A max dameon: 150.5 cm/sec PA V2 mean: 69.9 cm/sec MV E/A: 0.72 PA mean P.1 mmHg Med Peak E' Dameon: 7.4 cm/sec PA pr(Accel): 38.5 mmHg E/E' med: 14.8 Lat Peak E' Dameon: 6.9 cm/sec E/E' lat: 15.7 E/e' average: 15.2 MV dec time: 0.31 sec MVA(VTI): 2.6 cm2 MV V2 mean: 103.4 cm/sec SV(LVOT): 76.9 ml MV mean P.5 mmHg MV V2 VTI: 29.4 cm MV P1/2t-pr_phl: 70.3 msec Reading Physician:04:37 PM
== END ==
PROVIDERS: Family Provider Family Medicine; PCP Family Medicine; Referring Provider Family Medicine; Visit Provider Family Medicine
DX: I35.8 Other nonrheumatic aortic valve disorders (principal); I25.10 Atherosclerotic heart disease of native coronary artery without angina pectoris; E78.5 Hyperlipidemia, unspecified
CPT/HCPCS: 93306

== ENCOUNTER → 2020-07-11 09:50 | Outpatient (CLI) | payer MEDICARE, OTHER, SELFPAY ==
--- NOTE | 2020-07-12 14:26 | PM.TREADMILL ---
Cardiac Stress Test Report Referral & Results Date Patient Seen: 07/12/20 Requesting provider: Elijah Chand Indication: Left arm pain Rest ECG: Unremarkable Procedure Note: Today following both written and verbal informed consent the patient was exercised according to a standard Mikael protocol patient went for a total of 5 minutes 59 seconds achieving a maximum heart rate of 144 maximum systolic blood pressure of 180. This is approximately 7.0 METS. Exercise was terminated at this point because of targets were met. Patient was also given Cardiolite through a previously started Hep-Lock IV by the diagnostic imaging staff approximately 1 minute prior to the cessation of exercise. Patient had a single PVC Function aerobic impairment rates approximately 0 on the active scale No ST-T segment changes identified Impression: Normal electrocardiographic response to exercise. Average exercise capacity. Please see perfusion imaging report as well Please note: Actual ECG tracings can be found in the PACS system.
--- NOTE | 2020-07-12 19:04 | DI.NM.S_ITS ---
DATE OF SERVICE: 07/11/2020 PROCEDURE: Exercise perfusion study. INDICATIONS: Chest pain, left arm pain, hyperlipidemia, coronary artery disease. RADIOPHARMACEUTICAL: 25.5 millicurie technetium-99m Myoview IV was injected at stress and 26.5 millicurie technetium-99m Myoview IV was injected at rest. CARDIAC STRESS: The patient underwent exercise perfusion study under the supervision of an attending staff. He walked on Mikael protocol for 6 minutes and achieved 101 percent of target heart rate. Baseline blood pressure 130/80. Peak blood pressure 180/80. Baseline rhythm was sinus with mild sinus tachycardia. During stress, there were no convincing ischemic changes. In recovery, the patient had some PVCs without any ventricular tachycardia. No chest pain or anginal symptoms. RAW DATA: There is increased subdiaphragmatic activity. GATED STUDY: Stress LV ejection fraction 77 percent without any obvious wall motion abnormalities. Resting end-diastolic volume 67 mL and TID ratio 0.68, which is within normal limits. Lung/heart ratio 0.37, which is within normal limits. MYOCARDIAL PERFUSION: Stress supine, resting supine and stress prone images were compared to each other. There was normal myocardial perfusion. CONCLUSION: This is a normal myocardial perfusion study without any evidence of obvious ischemia or infarction. Fair exercise tolerance. Normal hemodynamic response. Baseline mild sinus tachycardia. No anginal symptoms. Rare premature ventricular contractions in recovery without any ventricular tachycardia. Overall, this is a low-risk myocardial perfusion scan. Eddi Virgen - EVELIN/lexx/shira doc#: [id number]/job#: [id number] dd: 07/12/2020 17:03:00 dt: 07/12/2020 18:15:00 DICTATING MD/COPIES TO: Melina Gallegos MD COPIES MNE: SHERRY;
== END ==
PROVIDERS: Family Provider Family Medicine; PCP Family Medicine; Referring Provider Family Medicine; Visit Provider Family Medicine
DX: R94.31 Abnormal electrocardiogram [ECG] [EKG] (principal); R07.9 Chest pain, unspecified; I25.10 Atherosclerotic heart disease of native coronary artery without angina pectoris; E78.5 Hyperlipidemia, unspecified; M79.602 Pain in left arm
CPT/HCPCS: 78452; 93016; 93017; 93018; A9502

== ENCOUNTER → 2020-07-11 11:27 | Outpatient (CLI) | payer MEDICARE, OTHER, SELFPAY ==
[2020-07-11 13:39] LABS: COVID19 -Nasal RAPID Negative (Negative)
== END ==
PROVIDERS: Family Provider Family Medicine; PCP Family Medicine; Visit Provider Physician Assistant
DX: Z20.822 Contact with and (suspected) exposure to COVID-19 (principal)
CPT/HCPCS: 87635; C9803

== ENCOUNTER → 2021-08-11 09:34 | Outpatient (CLI) | payer MEDICARE, OTHER, SELFPAY ==
--- NOTE | 2021-08-11 09:35 | DI.MRI.S_ITS ---
PROCEDURE: MR LUMBAR SPINE WO CON INDICATIONS: severe lumbar stenosis and left foot numbness TECHNIQUE: Noncontrast sagittal T1 spin echo and T2 fast echo, sagittal STIR, and T2 fast spin echo through the lumbar spine. In cases with scoliosis, additional coronal T2 fast spin echo may be performed. COMPARISON: None. FINDINGS: Image quality: Excellent. Alignment and Curvature: There is normal bony alignment. Bone Marrow: Multilevel Modic type 1 degenerative endplate changes noted at L2-3, L3-4, L4-5 Spinal Cord: Conus medullaris terminates at the L1 level. Visualized cord demonstrates normal signal and size. Paraspinous Soft Tissues: No paravertebral masses. T12-L1: Normal appearance. L1-L2: Disc space narrowing and circumferential disc bulge present. No central stenosis. Mild bilateral foraminal stenosis L2-L3: Disc space narrowing and circumferential disc bulge combines with hypertrophic facet joints and dorsal epidural fat to result in severe central stenosis. Moderate bilateral foraminal stenosis. L3-L4: A disc space narrowing and circumferential disc bulge and hypertrophic facet joints results in moderate to severe central stenosis. Moderate right and severe left foraminal stenosis. L4-L5: Disc space narrowing and circumferential disc bulge combines with hypertrophic facet joints to result in moderate to severe central stenosis. Moderate right and severe left foraminal stenosis L5-S1: Disc height is preserved. Circumferential disc bulge present with no central stenosis. Severe right and moderate to severe left foraminal stenosis IMPRESSION: Multilevel degenerative disc disease and arthropathy results in varying degrees of central and foraminal stenosis including severe central stenosis at L2-3, moderate to severe central stenosis at L3-4 and L4-5 Approved by: Kerwin Otero M.D. on 08/11/2021 at 10:28
== END ==
PROVIDERS: Family Provider Family Medicine; PCP Family Medicine; Referring Provider Family Medicine; Visit Provider Family Medicine
DX: M48.061 Spinal stenosis, lumbar region without neurogenic claudication (principal); M51.36 Other intervertebral disc degeneration, lumbar region; M47.816 Spondylosis without myelopathy or radiculopathy, lumbar region; R20.0 Anesthesia of skin
CPT/HCPCS: 72148

== ENCOUNTER → 2021-08-19 10:40 | Outpatient (CLI) | payer MEDICARE, OTHER, SELFPAY ==
[2021-08-19 12:57] LABS: Add Manual Diff / Slide Review NO; Basophils Absolute Auto 0 /uL (0-100); Basophils Percent Auto 0.8 % (0-2); Eosinophils Absolute Auto 100 /uL (0-450); Eosinophils Percent Auto 1.5 % (2-4); Hematocrit 43.7 % (41-53); Hemoglobin 14.9 g/dL (13.5-17.5); Lymphocytes Absolute Auto 2200 /uL (1100-4500); Lymphocytes Percent Auto 38.3 % (25-40); Mean Corpuscular HGB Conc 34.1 % (30-36); Mean Corpuscular Hemoglobin 30.8 PG (26-34); Mean Corpuscular Volume 90.2 fL (80-100); Monocytes Absolute Auto 400 /uL (0-900); Monocytes Percent Auto 6.4 % (3-14); Neutrophils Absolute Auto 3000 /uL (1500-7000); Platelet Count 206 X10^3/uL (150-400); Red Blood Cell Count 4.84 X10^6/uL (4.5-5.9); Red Cell Distribution Width 14.9 % (11.6-14.8); White Blood Cell Count 5.7 X10^3/uL (4.5-11.0)
[2021-08-19 13:43] LABS: Alanine Aminotransferase 28 IU/L (<50); Albumin 4.6 g/dL (3.5-5.0); Albumin Globulin Ratio 1.4 (1.0-2.8); Alkaline Phosphatase 66 U/L (38-126); Aspartate Aminotransferase 30 IU/L (17-59); BUN Creatinine Ratio 20.2 (6-22); Bilirubin Total 0.7 mg/dL (0.2-1.3); Blood Urea Nitrogen 19 mg/dL (9-20); Calcium 8.5 mg/dL (8.4-10.2); Carbon Dioxide 25 mmol/L (22-32); Chloride 103 mmol/L (98-107); Cholesterol 154 mg/dL (140-199); Estimated Glomerular Filt Rate > 60 mL/min (>60); Globulin 3.4 g/dL (1.7-4.1); Glucose 96 mg/dL (80-110); HDL Cholesterol 42 mg/dL (40-60); HEMOLYSIS < 15 (0-50); LDL Cholesterol Calculated 81 mg/dL (<100); Potassium 4.3 mmol/L (3.4-5.1); Sodium 139 mmol/L (137-145); Triglycerides 156 mg/dL (35-150)
== END ==
PROVIDERS: Family Provider Family Medicine; PCP Family Medicine; Referring Provider Family Medicine; Visit Provider Family Medicine
DX: Z00.00 Encounter for general adult medical examination without abnormal findings (principal); E78.5 Hyperlipidemia, unspecified; I25.10 Atherosclerotic heart disease of native coronary artery without angina pectoris
CPT/HCPCS: 36415; 80053; 80061; 85025

== ENCOUNTER → 2021-11-27 09:33 | Outpatient (CLI) | payer MEDICARE, OTHER, SELFPAY ==
[2021-11-27 10:34] LABS: Appearance Urine UA SL CLOUDY; Bilirubin Urine UA NEGATIVE (NEGATIVE); Color Urine UA YELLOW; Glucose Urine UA NEGATIVE (Negative); Ketones Urine UA NEGATIVE (NEGATIVE); Leukocyte Esterase Urine UA 3+ (NEGATIVE); Nitrite Urine UA POSITIVE (Negative); Occult Blood Urine UA 1+ (Negative); Protein Urine UA TRACE (Negative); Urobilinogen Urine UA 0.2 E.U./dL (0.2)
[2021-11-27 10:41] LABS: Bacteria Urine Many (>30); Culture Indicated Urine Specimen Cultured; RBC Urine 5-10/HPF (0-5/HPF); Squamous Epithelial Cell Urine 1-5 /HPF (0-5/HPF); WBC Urine 10-30/HPF (0-5/HPF)
== END ==
PROVIDERS: Family Provider Family Medicine; PCP Family Medicine; Referring Provider Internal Medicine; Visit Provider Internal Medicine
DX: R82.90 Unspecified abnormal findings in urine (principal); R30.0 Dysuria
CPT/HCPCS: 81001; 87077; 87086; 87147; 87186

== ENCOUNTER → 2022-08-31 06:39 | Outpatient (CLI) | payer MEDICARE, OTHER, SELFPAY ==
--- NOTE | 2022-08-31 06:42 | DI.MRI.S_ITS ---
PROCEDURE: MR LUMBAR SPINE WO/W CON INDICATIONS: RIGHT LEG WEAKNESS S/P SURGERY TECHNIQUE: Noncontrast sagittal T1 spin echo and T2 fast spin echo, sagittal STIR, axial T1 and T2 fast spin echo through the lumbar spine. In cases with scoliosis, additional coronal T2 fast spin echo may be performed. After the administration of contrast, sagittal and axial T1 spin echo with fat saturation through the lumbar spine. COMPARISON: [facility], MR, MR LUMBAR SPINE WO CON, 08/11/2021, 9:40. [facility], CR, XR LUMBAR SPINE MIN 4V, 08/31/2022, 7:00. FINDINGS: Image quality: Excellent. Alignment and curvature: There is minimal L5-S1 anterolisthesis. No associated pars defects are seen. Marrow: Marrow is of normal overall signal. No acute vertebral body compression fractures. No suspicious marrow enhancement. Spinal cord: Conus medullaris terminates at the L1 level. Visualized spinal cord demonstrates normal signal, without suspicious enhancement. Paraspinous soft tissues: An expected degree of edema and enhancement can be seen within the postoperative soft tissues posteriorly. T12-L1: The disc height is well-preserved. Loss of disc signal is seen at this level. No significant neural foraminal or central canal narrowing can be seen. Stable from the prior study. L1-L2: The disc height is well-preserved. Loss of disc signal is seen at this level. Mild to moderate disc bulge is seen, which is eccentric to the left. Mild facet joint hypertrophy is seen. Moderate bilateral neural foraminal narrowing is seen. Mild central canal narrowing is seen. No significant change from the prior. L2-L3: Mild loss of disc height is seen. Loss of disc signal is seen. Reactive marrow endplate changes are seen which are hypointense on T1-weighted imaging and hyperintense on T2 weighted imaging, which is most consistent with edema (Modic type I changes). Moderate disc bulge is seen, which is eccentric to the left. There is a central/left disc protrusion. Moderate facet joint hypertrophy is seen. At least moderate bilateral neural foraminal narrowing can be seen. Moderate central canal narrowing is seen. This level is overall improved compared to the prior. L3-L4: Mild loss of disc height is seen. Loss of disc signal is seen. Mild to moderate disc bulge is seen. There has been removal of portions of the posterior elements. Moderate facet joint hypertrophy is seen. At least moderate bilateral neural foraminal narrowing can be seen. There is a degree of compression seen upon the exiting nerve roots. Minimal central canal narrowing is seen. The degree of central canal narrowing is clearly improved compared to prior. L4-L5: Imct-sx-[id number] loss of disc height and disc signal can be seen. At least moderate disc bulge is seen, which is eccentric to the right. At least moderate facet hypertrophy is seen. There has been removal of portions of the posterior elements. There is at least moderate right-sided and moderate to severe left-sided neural foraminal narrowing. There is a degree of compression seen upon the exiting nerve roots. Minimal central canal narrowing is seen. The degree of central canal narrowing is clearly improved compared to the prior. L5-S1: The disc height is well-preserved. Loss of disc signal is seen at this level. Moderate disc bulge is seen, which is eccentric to the left. At least moderate facet hypertrophy is seen. There is at least moderate left-sided and moderate to severe right-sided neural foraminal narrowing. There is a degree of compression seen upon the exiting nerve roots. Moderate central canal narrowing is seen. When comparison is made with the prior images, these findings are similar. IMPRESSION: No significant postoperative abnormality is seen. Postoperative changes are seen, with overall improvement in the degrees of central canal narrowing. Dictated by: Arya Vega M.D. on 09/01/2022 at 18:19 Approved by: Arya Vega M.D. on 09/01/2022 at 18:24
--- NOTE | 2022-08-31 06:46 | DI.RAD.S_ITS ---
PROCEDURE: XR LUMBAR SPINE MIN 4V INDICATIONS: RIGHT LEG WEAKNESS S/P SURGERY TECHNIQUE: 5 views of the lumbar spine acquired, including flexion and extension views. COMPARISON: [facility], , XR LUMBAR SPINE 2-3V, 06/11/2020, 15:06. FINDINGS: Bones: 5 nonrib-bearing vertebrae are present. There is normal bony alignment. No vertebral body compression fractures. No suspicious bony lesions. Multilevel degenerative changes. Endplate degenerative changes with disc space narrowing at multiple levels. Facet arthrosis in the lower lumbar spine. Leftward curvature of the thoracolumbar spine. Soft tissues: Overlying bowel gas pattern is normal. No suspicious soft tissue calcifications. The aorta has atherosclerotic calcifications. Flexion/extension: There is normal range of motion, with preserved normal alignment. IMPRESSION: Multilevel degenerative changes of the lumbar spine with disc disease and facet arthropathy. Dictated by: Shiva Saldana M.D. on 08/31/2022 at 9:49 Approved by: Shiva Saldana M.D. on 08/31/2022 at 9:52
== END ==
PROVIDERS: Family Provider Family Medicine; PCP Family Medicine; Referring Provider Neurological Surgery; Visit Provider Neurological Surgery
DX: M47.816 Spondylosis without myelopathy or radiculopathy, lumbar region (principal); Z48.811 Encounter for surgical aftercare following surgery on the nervous system; R29.898 Other symptoms and signs involving the musculoskeletal system; M41.9 Scoliosis, unspecified
CPT/HCPCS: 72110; 72158; A9579

== ENCOUNTER → 2022-09-12 08:55 | Outpatient (CLI) | payer MEDICARE, OTHER, SELFPAY ==
--- NOTE | 2022-09-12 08:58 | DI.US.S_ITS ---
PROCEDURE: US ABD AORTA ANEURYSM SCREEN INDICATIONS: HISTORY OF SMOKING IN MALE TECHNIQUE: Real time scanning was performed of the aorta and iliac arteries, with image documentation. COMPARISON: [facility], , ABD AORTA ANEURYSM SCREEN, 02/22/2020, 8:38. FINDINGS: Aorta: The proximal aorta is not seen. Mid-aorta measures 2 cm. Distal aortic diameter is 1.7 cm. Iliac arteries: Right common iliac artery measures 1 cm. Left common iliac artery measures 1.2 cm. IMPRESSION: Negative for aneurysm. Dictated by: Arya Vega M.D. on 09/12/2022 at 13:15 Approved by: Arya Vega M.D. on 09/12/2022 at 13:16
[2022-09-12 10:40] LABS: Add Manual Diff / Slide Review NO; Basophils Absolute Auto 0 /uL (0-100); Basophils Percent Auto 0.8 % (0-2); Eosinophils Absolute Auto 100 /uL (0-450); Eosinophils Percent Auto 2.3 % (2-4); Hematocrit 39.4 % (41-53); Hemoglobin 13.4 g/dL (13.5-17.5); Lymphocytes Absolute Auto 1900 /uL (1100-4500); Lymphocytes Percent Auto 37.4 % (25-40); Mean Corpuscular HGB Conc 33.9 % (30-36); Mean Corpuscular Hemoglobin 30.6 PG (26-34); Mean Corpuscular Volume 90.1 fL (80-100); Monocytes Absolute Auto 300 /uL (0-900); Monocytes Percent Auto 6.8 % (3-14); Neutrophils Absolute Auto 2600 /uL (1500-7000); Neutrophils Percent Auto 52.7 % (50-75); Platelet Count 214 X10^3/uL (150-400); Red Blood Cell Count 4.37 X10^6/uL (4.5-5.9)
[2022-09-12 10:49] LABS: Alanine Aminotransferase 28 IU/L (<50); Albumin 4.1 g/dL (3.5-5.0); Albumin Globulin Ratio 1.4 (1.0-2.8); Alkaline Phosphatase 63 U/L (38-126); Aspartate Aminotransferase 28 IU/L (17-59); BUN Creatinine Ratio 22.6 (6-22); Bilirubin Total 0.5 mg/dL (0.2-1.3); Blood Urea Nitrogen 19 mg/dL (9-20); Calcium 8.6 mg/dL (8.4-10.2); Carbon Dioxide 28 mmol/L (22-32); Chloride 104 mmol/L (98-107); Cholesterol 129 mg/dL (140-199); Estimated Glomerular Filt Rate > 60 mL/min (>60); Glucose 96 mg/dL (80-110); HDL Cholesterol 41 mg/dL (40-60); HEMOLYSIS < 15 (0-50); LDL Cholesterol Calculated 64 mg/dL (<100); Potassium 4.7 mmol/L (3.4-5.1); Sodium 140 mmol/L (137-145); Total Protein 7.1 g/dL (6.3-8.2); Triglycerides 121 mg/dL (35-150)
[2022-09-12 11:16] LABS: TSH w/ Reflex to FT4 2.49 uIU/mL (0.47-4.68)
== END ==
PROVIDERS: Family Provider Family Medicine; PCP Family Medicine; Referring Provider Family Medicine; Visit Provider Family Medicine
DX: I25.10 Atherosclerotic heart disease of native coronary artery without angina pectoris (principal); E78.5 Hyperlipidemia, unspecified; M48.061 Spinal stenosis, lumbar region without neurogenic claudication; Z13.6 Encounter for screening for cardiovascular disorders; Z87.891 Personal history of nicotine dependence
CPT/HCPCS: 36415; 76706; 80053; 80061; 84443; 85025

== ENCOUNTER → 2022-12-01 14:37 | Outpatient (CLI) | payer MEDICARE, OTHER, SELFPAY ==
[2022-12-01 15:16] LABS: Add Manual Diff / Slide Review NO; Basophils Absolute Auto 0 /uL (0-100); Basophils Percent Auto 0.6 % (0-2); Eosinophils Absolute Auto 100 /uL (0-450); Eosinophils Percent Auto 1.2 % (2-4); Hematocrit 42.4 % (41-53); Hemoglobin 14.3 g/dL (13.5-17.5); Lymphocytes Absolute Auto 2300 /uL (1100-4500); Lymphocytes Percent Auto 31.8 % (25-40); Mean Corpuscular HGB Conc 33.7 % (30-36); Mean Corpuscular Hemoglobin 30.2 PG (26-34); Mean Corpuscular Volume 89.7 fL (80-100); Monocytes Absolute Auto 600 /uL (0-900); Monocytes Percent Auto 7.5 % (3-14); Neutrophils Absolute Auto 4300 /uL (1500-7000); Neutrophils Percent Auto 58.9 % (50-75); Platelet Count 223 X10^3/uL (150-400); Red Blood Cell Count 4.72 X10^6/uL (4.5-5.9); Red Cell Distribution Width 14.9 % (11.6-14.8); White Blood Cell Count 7.3 X10^3/uL (4.5-11.0)
== END ==
PROVIDERS: Family Provider Family Medicine; PCP Family Medicine; Referring Provider Family Medicine; Visit Provider Family Medicine
DX: D64.9 Anemia, unspecified (principal)
CPT/HCPCS: 36415; 85025

== ENCOUNTER → 2023-02-17 12:00 | Outpatient (CLI) | payer MEDICARE, OTHER, SELFPAY | PROVIDERS: Family Provider Family Medicine; PCP Family Medicine; Visit Provider Physician Assistant | DX: R82.90 Unspecified abnormal findings in urine (principal) | CPT/HCPCS: 87086 ==

== ENCOUNTER → 2023-10-06 12:46 | Outpatient (CLI) | payer MEDICARE, OTHER, SELFPAY ==
[2023-10-06 14:29] LABS: Add Manual Diff / Slide Review NO; Basophils Absolute Auto 0 /uL (0-100); Basophils Percent Auto 0.7 % (0-2); Eosinophils Absolute Auto 100 /uL (0-450); Eosinophils Percent Auto 1.7 % (2-4); Hematocrit 42.9 % (41-53); Hemoglobin 14.5 g/dL (13.5-17.5); Lymphocytes Absolute Auto 2300 /uL (1100-4500); Lymphocytes Percent Auto 36.8 % (25-40); Mean Corpuscular HGB Conc 33.9 % (30-36); Mean Corpuscular Volume 91.4 fL (80-100); Monocytes Absolute Auto 400 /uL (0-900); Monocytes Percent Auto 6.5 % (3-14); Neutrophils Absolute Auto 3400 /uL (1500-7000); Neutrophils Percent Auto 54.3 % (50-75); Platelet Count 199 X10^3/uL (150-400); Red Blood Cell Count 4.69 X10^6/uL (4.5-5.9); White Blood Cell Count 6.3 X10^3/uL (4.5-11.0)
[2023-10-06 14:50] LABS: Alanine Aminotransferase 31 IU/L (<50); Albumin 4.5 g/dL (3.5-5.0); Albumin Globulin Ratio 1.6 (1.0-2.8); Alkaline Phosphatase 74 U/L (38-126); Aspartate Aminotransferase 30 IU/L (17-59); BUN Creatinine Ratio 18.3 (6-22); Bilirubin Total 0.9 mg/dL (0.2-1.3); Blood Urea Nitrogen 17 mg/dL (9-20); Carbon Dioxide 23 mmol/L (22-32); Chloride 104 mmol/L (98-107); Cholesterol 137 mg/dL (140-199); Estimated Glomerular Filt Rate > 60 mL/min (>60); Globulin 2.9 g/dL (1.7-4.1); Glucose 88 mg/dL (80-110); HDL Cholesterol 41 mg/dL (40-60); HEMOLYSIS < 15 (0-50); LDL Cholesterol Calculated 60 mg/dL (<100); Potassium 4.6 mmol/L (3.4-5.1); Sodium 137 mmol/L (137-145); Total Protein 7.4 g/dL (6.3-8.2); Triglycerides 180 mg/dL (35-150)
[2023-10-06 15:24] LABS: Prostate Specific Antigen Scrn 0.373 ng/mL (0.1-4.0); TSH w/ Reflex to FT4 2.31 uIU/mL (0.47-4.68)
[2023-10-06 16:02] LABS: Creatinine Urine Random 60.03 mg/dL
[2023-10-06 16:07] LABS: Microalbumin Urine Random 1.2 mg/dL (0-1.6)
[2023-10-08 03:37] LABS: Apolipoprotein B 70 mg/dL (<90)
== END ==
PROVIDERS: Family Provider Family Medicine; PCP Family Medicine; Referring Provider Family Medicine; Visit Provider Family Medicine
DX: E78.5 Hyperlipidemia, unspecified (principal); Z12.5 Encounter for screening for malignant neoplasm of prostate; I25.10 Atherosclerotic heart disease of native coronary artery without angina pectoris
CPT/HCPCS: 36415; 80053; 80061; 82043; 82172; 82570; 84443; 85025; G0103

== ENCOUNTER → 2024-05-05 14:50 | Outpatient (CLI) | payer MEDICARE, OTHER, SELFPAY ==
--- NOTE | 2024-05-05 14:55 | DI.MRI.S_ITS ---
PROCEDURE: MR LUMBAR SPINE WO CON INDICATIONS: NUMBNESS AND TINGLING LLE TECHNIQUE: Noncontrast sagittal T1 spin echo and T2 fast echo, sagittal STIR, and T2 fast spin echo through the lumbar spine. In cases with scoliosis, additional coronal T2 fast spin echo may be performed. COMPARISON: [facility], MR, MR LUMBAR SPINE WO/W CON, 08/31/2022, 7:22. [facility], MR, MR LUMBAR SPINE WO CON, 08/11/2021, 9:40. FINDINGS: Image quality: Excellent. Alignment and Curvature: Minimal levocurvature. Grade 1 anterolisthesis of L5 on S1 Bone Marrow: Prominent degenerative endplate changes, most pronounced at L2 and L3. Edema within the L2 and L3 vertebral bodies is increased compared to prior and likely secondary to degenerative changes.. No acute vertebral body compression fractures. Spinal Cord: Conus medullaris terminates at the L1 level. Visualized cord demonstrates normal signal and size. Paraspinous Soft Tissues: No paravertebral masses. T12-L1: Disc desiccation. No central canal or neural foraminal stenosis. L1-L2: Disc desiccation and minimal disc bulge. Facet arthropathy. Mild central canal stenosis. Mild bilateral neural foraminal stenosis is stable. L2-L3: Disc desiccation and moderate height loss. Diffuse disc bulge. Facet arthropathy. Mild to moderate central canal stenosis is decreased compared to prior. Moderate bilateral neural foraminal stenosis is stable. L3-L4: Disc desiccation and mild height loss. Diffuse disc bulge. Facet arthropathy. Status post decompression. No significant central canal stenosis. Moderate to severe left and moderate right neural foraminal stenosis is stable. L4-L5: Disc desiccation and moderate height loss. Diffuse disc bulge. Facet arthropathy. No significant central canal stenosis. Moderate to severe left and moderate right neural foraminal stenosis is stable. L5-S1: Disc desiccation and mild disc bulge. Facet arthropathy. Moderate central canal stenosis. Stable moderate to severe right and moderate left neural foraminal stenosis. IMPRESSION: 1. Multilevel degenerative changes of the lumbar spine are similar compared to prior exam. 2. Uodj-qx-tmvkeupx central canal stenosis at L2-L3. Moderate central canal stenosis at L5-S1. 3. Moderate to severe neural foraminal stenosis on the left at L3-L4, left at L4-5 and right at L5-S1. Dictated by: Eddie Thompson M.D. on 05/06/2024 at 11:24 Approved by: Eddie Thompson M.D. on 05/06/2024 at 11:35
--- NOTE | 2024-05-05 14:55 | DI.RAD.S_ITS ---
PROCEDURE: XR LUMBAR SPINE MIN 4V INDICATIONS: NUMBNESS AND TINGLING LLE TECHNIQUE: 5 views of the lumbar spine acquired, including flexion and extension views. COMPARISON: [facility], CR, XR LUMBAR SPINE MIN 4V, 08/31/2022, 7:00. [facility], CR, XR LUMBAR SPINE 2-3V, 06/11/2020, 15:06. FINDINGS: Bones: 5 nonrib-bearing vertebrae are present. Mild levocurvature. Straightening of the normal lumbar lordosis. Decreased osseous mineralization. No vertebral body compression fractures. No suspicious bony lesions. There is multilevel facet arthropathy, worse at L4-5 and L5-S1. Multilevel disc height loss with degenerative endplate changes and spurring is present. Soft tissues: Overlying bowel gas pattern is normal. No suspicious soft tissue calcifications. Atherosclerotic vascular calcifications. Flexion/extension: There is limited range of motion, with preserved alignment. IMPRESSION: Multilevel degenerative changes of the lumbar spine are redemonstrated. Dictated by: Eddie Thompson M.D. on 05/06/2024 at 11:39 Approved by: Eddie Thompson M.D. on 05/06/2024 at 11:41
== END ==
PROVIDERS: Family Provider Family Medicine; PCP Family Medicine; Referring Provider Neurological Surgery; Visit Provider Neurological Surgery
DX: R20.0 Anesthesia of skin (principal); R20.2 Paresthesia of skin; M51.369 Other intervertebral disc degeneration, lumbar region without mention of lumbar back pain or lower extremity pain; M48.061 Spinal stenosis, lumbar region without neurogenic claudication; M48.07 Spinal stenosis, lumbosacral region
CPT/HCPCS: 72110; 72148

== ENCOUNTER → 2024-07-05 11:55 | Outpatient (CLI) | payer MEDICARE, OTHER, SELFPAY ==
--- NOTE | 2024-07-05 11:59 | DI.RAD.S_ITS ---
PROCEDURE: XR SHOULDER RT MIN 2V INDICATIONS: Bony mass R shoulder TECHNIQUE: 3 views of the shoulder were acquired. COMPARISON: None. FINDINGS: Bones: Nondisplaced remote avulsion fracture of the periarticular superior acromion appreciated. There is also mild inferior acromial hooking Acromioclavicular and glenohumeral joints: Mild degeneration of the acromioclavicular joint appreciated. Glenohumeral joint is normal. Soft tissues: No soft tissue swelling, calcification or mass. IMPRESSION: Mild inferior acromial hooking predisposing to extrinsic rotator cuff impingement. Mild acromioclavicular degeneration . Minimally displaced remote avulsion fracture off the periarticular acromion which may account for palpable lump on physical exam Dictated by: Adi Davidson M.D. on 07/06/2024 at 12:53 Approved by: Adi Davidson M.D. on 07/06/2024 at 12:55
== END ==
PROVIDERS: Family Provider Family Medicine; PCP Family Medicine; Referring Provider Physician Assistant; Visit Provider Physician Assistant
DX: S42.121A Displaced fracture of acromial process, right shoulder, initial encounter for closed fracture (principal); M19.011 Primary osteoarthritis, right shoulder; M25.811 Other specified joint disorders, right shoulder; X58.XXXA Exposure to other specified factors, initial encounter
CPT/HCPCS: 73030